=== PATIENT | female | born 1970 | race Caucasian/White ===

== ENCOUNTER 2020-12-14 15:25 | Outpatient (CLI) | payer OTHER, SELFPAY ==
--- NOTE | ~2020-12-14 | MM_ITS ---
EXAMINATION: MM screening [facility] w [place] HISTORY: Screening TECHNIQUE: Craniocaudal and mediolateral oblique 3-D tomosynthesis images were obtained and synthetic 2-D images were generated. CAD analysis was submitted and interpreted. COMPARISON: Comparison to multiple prior studies sequentially, with oldest reviewed study dated 04/19. BREAST PARENCHYMAL COMPOSITION: The breasts are heterogenously dense, which may obscure small masses. FINDINGS: There are asymmetries in the upper aspect of the left breast on MLO view. The right breast is stable without evidence for malignancy. IMPRESSION: 1. Left breast asymmetries. 2. Additional mammographic views and possible breast ultrasound are recommended. BI-RADS Category 0: Incomplete: Needs additional imaging evaluation. Reviewed, dictated and finalized at location A. IMPRESSION: 1. Left breast asymmetries. 2. Additional mammographic views and possible breast ultrasound are recommended . BI-RADS Category 0: Incomplete: Needs additional imaging evaluation.
== END 2020-12-14 15:26 | disposition home or self-care (01) ==
LOC: ANHIMG 15:30
DX: Z12.31 Encounter for screening mammogram for malignant neoplasm of breast (principal); R92.8 Other abnormal and inconclusive findings on diagnostic imaging of breast
CPT/HCPCS: 77063; 77067

== ENCOUNTER → 2020-12-16 09:53 | Outpatient (CLI) | payer OTHER, SELFPAY ==
--- NOTE | ~2020-12-16 | MMUS_ITS ---
EXAMINATION: MM diagnostic mammo unilat LT, US breast LT complete HISTORY: Follow-up left breast asymmetries TECHNIQUE: Additional 3-D tomosynthesis images of the left breast were performed and synthetic 2-D im ages were generated. CAD analysis was submitted and interpreted. High resolution left breast ultrasou nd was performed. COMPARISON: Comparison to multiple prior studies sequentially, with oldest reviewed study dated 04/19. BREAST PARENCHYMAL COMPOSITION: The breasts are heterogenously dense, which may obscure small masses. FINDINGS: MAMMOGRAPHIC FINDINGS: There are no suspicious masses, calcifications or architectural distortion in the left breast to sugg est malignancy. ULTRASOUND: Left breast ultrasound: At 2:00, 5 cm from the nipple, there is a 5 mm cyst. At 2:00, 5 cm from the n ipple, there is an oval circumscribed hypoechoic mass with enhanced or transmission and parallel orie ntation. No internal vascularity. This mass measures 1 cm. At 3:00, 3 cm from the nipple, there is a 4 mm cyst. At 10:00, 3 cm from the nipple, there is a 3 mm cyst. IMPRESSION: 1. Probable benign left breast mass at 2:00, 5 cm from the nipple 2. Recommend 6 month follow-up left breast ultrasound BI-RADS category 3, probably benign findings. Reviewed, dictated and finalized at location A. IMPRESSION: 1. Probable benign left breast mass at 2:00, 5 cm from the nipple 2. Recommend 6 month follow-up left breast ultrasound BI-RADS category 3, probably benign findings.
== END ==
DX: N63.21 Unspecified lump in the left breast, upper outer quadrant (principal); N60.02 Solitary cyst of left breast
CPT/HCPCS: 76641; 77065

== ENCOUNTER → 2023-04-24 09:07 | Outpatient (CLI) | payer OTHER, SELFPAY ==
--- NOTE | ~2023-04-24 | MM_ITS ---
EXAMINATION: MM screening [facility] w [place] HISTORY: Screening mammogram, family history of breast cancer in her mother. TECHNIQUE: Craniocaudal and mediolateral oblique 3-D tomosynthesis images were obtained and synthetic 2-D images were generated. CAD analysis was submitted and interpreted. COMPARISON: 12/16/2020, 12/14/2020, 08/08/2019 BREAST PARENCHYMAL COMPOSITION:The breasts are extremely dense, which lowers the sensitivity of mammo graphy. FINDINGS: No suspicious mass, calcification, or architectural distortion are identified in either liss ast to suggest malignancy. There has been no suspicious interval change. IMPRESSION: No mammographic evidence of malignancy. Recommend routine screening mammography in one year. BI-RADS Category 1: Negative Reviewed, dictated and finalized at location .
== END ==
PROVIDERS: PCP Physician Assistant; Visit Provider Physician Assistant
DX: Z12.31 Encounter for screening mammogram for malignant neoplasm of breast (principal)
CPT/HCPCS: 77063; 77067